=== PATIENT | female | born 1930 | race Caucasian/White ===

== ENCOUNTER → 2017-03-17 | Day surgery (SDC) | payer MEDICARE, OTHER ==
[~2017-03-17] MED LIST: APIX5TAB PO; ATOR10TA PO; CALCCHW25 PO; CYMB30CA PO; FISH100020 PO; FURO20 PO; GABA600T PO; HYDR-3129 PO; IRONTAB4 PO; LACTATED RINGER'S 1000 ML INJ 1,000 ML ONE; LEVO50TA4 PO; MAGN400T PO; METO25TA6 PO; POTA75TA PO; PROPOFOL 500 MG/50 ML BTL IV ONE; PROT40TA PO
--- NOTE | 2017-03-17 13:37 | GIPROC ---
[facility] [address] [facility], [address] COLONOSCOPY PROCEDURE REPORT EXAM DATE: 03/17/2017 PATIENT NAME: Carolyne Meier MR #: [id number] BIRTHDATE: 1930 ENDOSCOPIST: Makayla Wolf MD ORDER #: [id number] SHOP REPAIRER: Britni Cook RN STATUS: outpatient INDICATIONS: The patient is a 86 yr old female here for a colonoscopy due to high risk patient with personal history of colon cancer PROCEDURE PERFORMED: endoscopic mucosal resection MEDICATIONS: None and Per Anesthesia. PREP QUALITY: good ESTIMATED BLOOD LOSS: None CONSENT: The patient understands the risks and benefits of the procedure and understands that these risks include, but are not limited to: sedation, allergic reaction, infection, perforation and/or bleeding. Alternative means of evaluation and treatment include, among others: physical exam, x-rays, and/or surgical intervention. The patient elects to proceed with this endoscopic procedure. medical equipment was checked for proper function. Hand hygiene and appropriate measures for infection prevention was taken. After the risks, benefits and alternatives of the procedure were thoroughly explained, Informed consent was verified, confirmed and timeout was successfully executed by the treatment team. A digital exam revealed no abnormalities of the rectum The EC-3890Li ([id number]) endoscope was introduced through the anus and advanced to the surgical anastomosis. The instrument was then slowly withdrawn as the colon was fully examined. COLON FINDINGS: Flat 2 cm lesion next to the surgical anastamosis removed by snare. Multiple polyps in the sigmoid and rectum removed by snare or Ablated by heat. Flat lesion in the transverse colon removed by endoscopic mucosal resection. Mild diverticulosis was noted in the descending colon. Retroflexed views revealed internal hemorrhoids and Retroflexed views revealed medium internal hemorrhoids The scope was then completely withdrawn from the patient and the procedure terminated. ADVERSE EVENTS: There were no complications. IMPRESSIONS: 1. Flat 2 cm lesion next to the surgical anastamosis removed by snare 2. Multiple polyps in the sigmoid and rectum removed by snare or Ablated by heat 3. Flat lesion in the transverse colon removed by endoscopic mucosal resection 4. Mild diverticulosis was noted in the descending colon 5. Retroflexed views revealed internal hemorrhoids 6. Retroflexed views revealed medium internal hemorrhoids 7. Revealed no abnormalities of the rectum RECOMMENDATIONS: 1. Await biopsy results. Biopsy results will not be ready for 7-10 days. If you don't hear from us in two weeks, call our office for results. 2. Yearly hemoccult 3. High fiber diet RECALL: Return 6 months Colonoscopy Makayla Wolf MD eSigned: Makayla Wolf MD 03/17/2017 1:37 PM cc: dA Eubanks M.D.
--- NOTE | 2017-03-17 13:40 | GIPROC ---
[facility] [address] [place], [address] EGD PROCEDURE REPORT EXAM DATE: 03/17/2017 PATIENT NAME: Carolyne Meier MR#: [id number] BIRTHDATE: 1930 STATUS: outpatient ATTENDING: Makayla Wolf MD VISIT ID: [id number] PRODUCTION [employer] PLANT ENGINEER: Britni Cook RN ORDER #: [id number] INDICATIONS: The patient is a 86 yr old female here for an EGD due to dysphagia. PROCEDURE PERFORMED: EGD w/ biopsy and EGD w/ dilation of esophagus via guidewire MEDICATIONS: None and Per Anesthesia. ASA CLASS: Class III PHYSICAL EXAM: normal CONSENT: The patient understands the risks and benefits of the procedure and understands that these risks include, but are not limited to: sedation, allergic reaction, infection, perforation and/or bleeding. Alternative means of evaluation and treatment include, among others: physical exam, x-rays, and/or surgical intervention. The patient elects to proceed with this endoscopic procedure. DESCRIPTION OF PROCEDURE: for proper function. Hand hygiene and appropriate measures for infection prevention was taken. After the risks, benefits and alternatives of the procedure were thoroughly explained, Informed consent was verified, confirmed and timeout was successfully executed by the treatment team. The EC-3890Li ([id number]) endoscope was introduced through the mouth and advanced to the second portion of the duodenum. The instrument was slowly withdrawn as the mucosa was fully examined. Sever gastritis Bx from antrum. Esophageal stricture S? Dilation of esophagus size 16 mm. The endoscopy was otherwise normal. Retroflexed views revealed no abnormalities The gastroscope was then slowly withdrawn and removed. COMPLICATIONS: There were no complications. IMPRESSIONS: 1. Sever gastritis Bx from antrum 2. Esophageal stricture S? Dilation of esophagus size 16 mm 3. Normal endoscopy otherwise 4. Retroflexed views revealed no abnormalities RECOMMENDATIONS: 1. Await biopsy results. Biopsy results will not be ready for 7-10 days. If you don't hear from us in two weeks, call our office for biopsy results. 2. Anti-reflux regimen 3. Avoid NSAIDS 4. Protonix 40mg Q AM PATIENT CONDITION: stable DISPOSITION: Home REPEAT EXAM: Return as needed for EGD Makayla Wolf MD eSigned: Makayla Wolf MD 03/17/2017 1:40 PM cc: Ad Eubanks M.D.
== END | disposition home or self-care (01) ==
LOC: ESDC 11:17
PROVIDERS: ATTEND Hospitalist
DX: Z12.11 Encounter for screening for malignant neoplasm of colon (principal); Z85.038 Personal history of other malignant neoplasm of large intestine; D12.3 Benign neoplasm of transverse colon; K63.5 Polyp of colon; D12.5 Benign neoplasm of sigmoid colon; K62.1 Rectal polyp; K57.90 Diverticulosis of intestine, part unspecified, without perforation or abscess without bleeding; K64.8 Other hemorrhoids; R13.10 Dysphagia, unspecified; K29.70 Gastritis, unspecified, without bleeding; K22.2 Esophageal obstruction
CPT/HCPCS: 00740; 00810; 43239; 43248; 45385; 45388; 45390; 88305; J7120

== ENCOUNTER → 2017-09-15 | Day surgery (SDC) | payer MEDICARE, OTHER ==
[~2017-09-15] MED LIST changes: -LACTATED RINGER'S 1000 ML INJ 1,000 ML ONE; +PROPOFOL 200 MG/20 ML AMP IV ONE; -PROPOFOL 500 MG/50 ML BTL IV ONE; +SODIUM CHLORIDE 0.9% 250 ML ADDBAG IV ONE
== END | disposition home or self-care (01) ==
LOC: ESDC 08:41
PROVIDERS: ATTEND Internal Medicine Gastroenterology
DX: Z12.11 Encounter for screening for malignant neoplasm of colon (principal); Z85.038 Personal history of other malignant neoplasm of large intestine; D12.5 Benign neoplasm of sigmoid colon; K62.1 Rectal polyp; K57.90 Diverticulosis of intestine, part unspecified, without perforation or abscess without bleeding; K64.8 Other hemorrhoids; R13.10 Dysphagia, unspecified; R10.13 Epigastric pain; K44.9 Diaphragmatic hernia without obstruction or gangrene; K29.70 Gastritis, unspecified, without bleeding
CPT/HCPCS: 88305; 88312